=== PATIENT | female | born 1965 | race Two or more races ===

== ENCOUNTER 2018-12-02 11:05 | Emergency (ER) | payer OTHER ==
[~2018-12-02] VITALS: Ht 167.6 cm; Wt 59.0 kg
[~2018-12-02 11:05] MED LIST: BENADRYL25 MG PO; MEDROL4 MG PO
[2018-12-02] MEDS ORDERED: JANUMET 50-1,01 EACH (11:32)
== END 2018-12-02 14:03 | disposition home or self-care (01) ==
LOC: ER 11:05
DX: S13.4XXA Sprain of ligaments of cervical spine, initial encounter (principal); V49.9XXA Car occupant (driver) (passenger) injured in unspecified traffic accident, initial encounter; Y93.89 Activity, other specified; Y92.488 Other paved roadways as the place of occurrence of the external cause; Y99.8 Other external cause status

== ENCOUNTER 2021-01-22 13:57 | Emergency (ER) | payer OTHER ==
[~2021-01-22] VITALS: Ht 167.6 cm; Wt 59.0 kg
[~2021-01-22 13:57] MED LIST changes: +JANUMET 50-1,01 EACH
== END 2021-01-22 20:49 | disposition home or self-care (01) ==
LOC: ER 13:57
DX: R11.2 Nausea with vomiting, unspecified (principal)

== ENCOUNTER → 2023-01-20 | Emergency (ER) | payer OTHER ==
[~2023-01-20] VITALS: Ht 167.6 cm; Wt 58.1 kg
[~2023-01-20] MED LIST changes: +MOMETASONE FURO15 G2 TOP
== END | disposition home or self-care (01) ==
LOC: ER 17:05
DX: L30.9 Dermatitis, unspecified (principal); E11.9 Type 2 diabetes mellitus without complications; Z79.84 Long term (current) use of oral hypoglycemic drugs; Z91.013 Allergy to seafood